=== PATIENT | female | born 1940 | race Caucasian/White ===

== ENCOUNTER 2018-02-10 12:42 | Outpatient (CLI) | payer MEDICARE, OTHER, SELFPAY ==
[2018-02-10 13:09] VITALS: BP 145/72; PULSE 77; RESP 24; TEMP 36.7; O2SAT 91
[2018-02-10 13:10] VITALS: BP 145/72; PULSE 77; RESP 24; TEMP 36.7; O2SAT 91
== END 2018-02-10 13:10 | disposition home or self-care (01) ==
LOC: INF 12:42
PROVIDERS: Family Provider Family Medicine; Visit Provider Family Medicine
DX: M81.0 Age-related osteoporosis without current pathological fracture (principal)
CPT/HCPCS: 96372; J0897

== ENCOUNTER → 2018-02-23 16:30 | Outpatient (CLI) | payer MEDICARE, OTHER, SELFPAY ==
[2018-02-23 16:39] LABS: ABG Base Excess 10.1 mmol/L (-2.4-2.3); ABG HCO3 35.2 mmhg (22.0-26.0); ABG Oxygen Saturation 79 % (90-100); ABG PH 7.38 mmol/L (7.35-7.45)
[2018-02-23 16:41] LABS: Allen's Test ACCEPTABLE; Oxygen ROOM AIR %; Source L. RADIAL
[2018-02-23 16:47] LABS: ABG PCO2 60.4 mmhg (35.0-45.0); ABG PO2 39.9 mmhg (80-100)
== END ==
PROVIDERS: PCP Family Medicine; Visit Provider Family Medicine
DX: R09.02 Hypoxemia (principal)
CPT/HCPCS: 82803

== ENCOUNTER → 2018-02-25 14:50 | Outpatient (CLI) | payer MEDICARE, OTHER, SELFPAY ==
--- NOTE | 2018-02-25 14:58 | XR_ITS ---
XR chest 2V HISTORY: ITS.REASON: HYPOXIA, current smoker ORDERING PHYSICIAN: Manuel Walker MD PATIENT AGE: 77 years COMPARISON: 07/21/2017 FINDINGS: Mild cardiomegaly without failure. There is chronic coarsening of the bronchovascular markings with hyperinflation and hyperattenuation consistent with COPD/smoking related lung disease. There are scattered nodular opacities which may be due to granulomas. No lobar consolidation or collapse. Chronic blunting of the CP angles on both sides. IMPRESSION: Cardiomegaly with COPD/chronic change, no acute finding
[2018-02-25 15:49] LABS: ABG Base Excess 5.5 mmol/L (-2.4-2.3); ABG HCO3 30.7 mmhg (22.0-26.0); ABG Oxygen Saturation 97 % (90-100); ABG PH 7.37 mmol/L (7.35-7.45); ABG PO2 98.2 mmhg (80-100); ABG TCO2 32.4 mmhg (23-27)
[2018-02-25 15:56] LABS: Allen's Test Patient Unable; Oxygen 28% %; Source Left Radial
[2018-02-25 15:57] LABS: ABG PCO2 54.4 mmhg (35.0-45.0)
== END ==
PROVIDERS: PCP Family Medicine; Visit Provider Family Medicine
DX: R09.02 Hypoxemia (principal)
CPT/HCPCS: 71046; 82803

== ENCOUNTER 2018-08-15 12:50 | Outpatient (CLI) | payer MEDICARE, OTHER, SELFPAY ==
[2018-08-15 13:14] VITALS: BP 127/65; PULSE 77; RESP 24; TEMP 36.3; O2SAT 92
== END 2018-08-15 13:14 | disposition home or self-care (01) ==
LOC: INF 12:50
PROVIDERS: Visit Provider Family Medicine
DX: M81.0 Age-related osteoporosis without current pathological fracture (principal)
CPT/HCPCS: 96372; J0897

== ENCOUNTER → 2019-02-14 15:25 | Outpatient (CLI) | payer MEDICARE, OTHER, SELFPAY ==
[2019-02-14 15:03] VITALS: BP 114/73; PULSE 72; RESP 18; TEMP 36.8; O2SAT 93
[2019-02-14 15:17] VITALS: O2SAT 90
--- NOTE | 2019-02-14 15:31 | XR_ITS ---
XR DEXA axial skeleton HISTORY: ITS.REASON: OSTEOPOROSIS ORDERING PHYSICIAN: PAMELA Yip PATIENT AGE: 78 years COMPARISON: 10/07/2015 FINDINGS: The BMD measured at the AP Spine L1-L4 is 0.834 g/cm squared with a T score of -2.9. This is considered Osteoporotic according to the World Health Organization criteria. Fracture risk is High. Lumbar spine density has increased by 3.5%. The mean density of the hips has a T score of -1.2 and is unchanged IMPRESSION: Osteoporosis with high fracture risk. Treatment is advised. Suggest follow-up exam February 2020
--- NOTE | 2019-02-14 15:31 | MM_ITS ---
MM Dig screening mamm BI w/CAD ORDERING PHYSICIAN : PAMELA Yip PATIENT AGE: 78 years GENDER: Female COMPARISON: August 2012, September 2013, 2013, 2014, June 2017, INDICATION: ITS routine screening mammogram. No hormones. No new complaints Family history. Sister and niece with breast cancer. TECHNIQUE: Standard CC and MLO images were obtained. R2 CAD reviewed. FINDINGS: Mild/moderate residual fibroglandular elements in both breasts. As on today's films the fibroglandular elements are slightly more evident but this may merely reflect technique... No history of the exogenous hormones or creamgiven. . No dominant or suspicious mass. No suspicious calcifications. . No new findings of significant concern either breast. . CAD computer review highlights no areas of concern. RIGHT BREAST:Stable mammogram LEFT BREAST: No new areas of significant concern A small benign secretory calcifications retroareolar region on left is stable. IMPRESSION: Stable bilateral mammogram. No new areas significant concern. Bilateral follow-up one year recommended. BI-RADS Category: 1 Negative RECOMMENDED FOLLOW-UP: 1YR 1 YEAR FOLLOW-UP (A letter has been sent to the patient regarding results of the study.)
== END ==
PROVIDERS: PCP Physician Assistant; Visit Provider Physician Assistant
DX: Z12.31 Encounter for screening mammogram for malignant neoplasm of breast (principal); M81.0 Age-related osteoporosis without current pathological fracture
CPT/HCPCS: 77067; 77080; 96372; J0897

== ENCOUNTER 2020-03-24 13:04 | Outpatient (CLI) | payer MEDICARE, OTHER, SELFPAY ==
[2020-03-24 13:20] VITALS: BP 124/66; PULSE 67; RESP 22
== END 2020-03-24 13:20 | disposition home or self-care (01) ==
LOC: INF 13:04
PROVIDERS: Visit Provider Family Medicine
DX: M81.0 Age-related osteoporosis without current pathological fracture (principal)
CPT/HCPCS: 96372; J0897

== ENCOUNTER → 2021-09-22 15:53 | Outpatient (CLI) | payer OTHER, MEDICARE, SELFPAY ==
[2021-09-22 17:19] LABS: Alanine Aminotransferase 29 U/L (12-78); Albumin Level 3.9 g/dl (3.5-5.0); Albumin/Globulin Ratio 1.4 (1.1-1.8); Alkaline Phosphatase 45 U/L (38-126); Anion Gap 8.9 mEq/L (5-15); Aspartate Amino Transferase 29 U/L (14-36); Bilirubin,Total 0.3 mg/dl (0.2-1.3); Blood Urea Nitrogen 16 mg/dl (7-17); Calcium 9.4 mg/dl (8.4-10.2); Carbon Dioxide 33 mmol/L (22.0-30.0); Chloride 100 mmol/L (98-107); Estimated Glomerular Filt Rate 69 ml/min (>60); GFR (African American) 83 ML/MIN (>60); Globulin 2.7 g/dL (1.3-3.2); Glucose 198 mg/dl (74-100); Potassium 3.9 mmoL/L (3.5-5.1); Sodium 138 mmol/L (136-145); Total Protein,Serum 6.6 g/dl (6.3-8.2)
[2021-09-22 18:12] LABS: Vitamin B12 > 1000 pg/mL (239-931)
== END ==
PROVIDERS: Visit Provider Family Medicine
DX: J44.9 Chronic obstructive pulmonary disease, unspecified (principal); J96.12 Chronic respiratory failure with hypercapnia
CPT/HCPCS: 80053; 82607; 84443

== ENCOUNTER 2021-09-27 16:38 | Observation (INO) | payer OTHER, MEDICARE, SELFPAY ==
[2021-09-27] VITALS (10 sets, daily range): BP systolic 151–176; BP diastolic 81–94; PULSE 88–103; RESP 20–38; O2SAT 93–97; BMI 29.2; BMI 24.3
--- NOTE | 2021-09-27 16:46 | XR_ITS ---
PROCEDURE INFORMATION: Exam: XR Chest Exam date and time: 09/27/2021 4:46 PM Age: 81 years old Clinical indication: Dyspnea and shortness of breath; Additional info: Dyspnea, SOB TECHNIQUE: Imaging protocol: XR of the chest. Views: 1 view. COMPARISON: CR CXR2V XR chest 2V 02/25/2018 2:53 PM FINDINGS: Lungs: Patient is rotated right to left. Right perihilar infiltrate is suspected. Pleural spaces: Unremarkable. No pleural effusion. No pneumothorax. Heart/Mediastinum: Unremarkable. No cardiomegaly. Bones/joints: Unremarkable. IMPRESSION: Patient is rotated right to left. Right perihilar infiltrate is suspected.
[2021-09-27 17:26] LABS: Coronavirus 19, PCR Not Detected (NotDetected); Influenza A, PCR Not Detected (NotDetected); Influenza B, PCR Not Detected (NotDetected)
--- NOTE | 2021-09-27 17:32 | PC.NURSE ---
has been paged.
--- NOTE | 2021-09-27 17:41 | PC.NURSE ---
ER MD speaking with PCP about possible admission
--- NOTE | 2021-09-27 17:51 | PC.NURSE ---
Called and left message for pt's nurse to return call.
--- NOTE | 2021-09-27 17:53 | PC.NURSE ---
Hospice nurse returned call.
--- NOTE | 2021-09-27 18:24 | PC.NURSE ---
Dr Hagen speaking with Dr Goodrich
--- NOTE | 2021-09-27 18:31 | PC.NURSE ---
notified house about admission
--- NOTE | 2021-09-27 18:49 | PC.NURSE ---
has been paged.
--- NOTE | 2021-09-27 19:00 | PC.NURSE ---
speaking with Dr Flores, whom is on site construction superintendent for Dr Redmond.
--- NOTE | 2021-09-27 19:16 | PC.NURSE ---
Pt depends changed, minimal urine present.
--- NOTE | 2021-09-27 19:33 | PC.NURSE ---
Hospice nurse Emily Cesar phone number [phone]
--- NOTE | 2021-09-27 21:02 | HMH.EDSOB ---
ED Disposition Clinical Impression: Pneumonia, Dehydration Disposition: Admitted As Inpatient Condition on Discharge: Good Time of Disposition: 20:00 - Critical Care Critical Care Time: Yes Attestation: On 09/27/21, the high probability of a clinically significant, sudden or life threatening deterioration of the following system(s) required my full and direct attention, intervention and personal management. The time I documented below is in addition to time spent performing reported procedures but includes the following listed in this critical care notation. Total Critical Care Time: 30 Vital system(s) involved:: Respiratory Failure My critical care processes included: Assessment & monitoring of V/S, Initial and Re-exams, Data Review/Interpretation, Coordinating Care, Medication Orders and management, Documentation Medical Decision Making - Medical Records Medical records reviewed: Yes: I reviewed the patient's medical records. - Jovan Inquiry Pt receiving controlled substance: No Vital Signs: 09/27/21 16:39 09/27/21 16:42 09/27/21 17:00 Pulse Rate 103 H 101 H Pulse Rate [Right Radial] 102 H Respiratory Rate 20 36 H 38 H Blood Pressure 159/91 H 166/90 H Blood Pressure [Right Arm] 159/91 H Blood Pressure Mean Blood Pressure Mean [Right Arm] 113 Blood Pressure Source [Right Arm] Automatic Cuff Blood Pressure Position [Right Arm] Sitting 02 Sat by Pulse Oximetry 94 L 96 96 Oxygen Delivery Method Nasal Cannula Oxygen Flow Rate (LPM) 3 09/27/21 17:30 09/27/21 18:00 09/27/21 18:31 Pulse Rate 101 H 101 H Pulse Rate [Right Radial] Respiratory Rate 35 H 30 H 29 H Blood Pressure 151/81 H 166/86 H 153/87 H Blood Pressure [Right Arm] Blood Pressure Mean 103 Blood Pressure Mean [Right Arm] Blood Pressure Source [Right Arm] Blood Pressure Position [Right Arm] 02 Sat by Pulse Oximetry 96 97 Oxygen Delivery Method Nasal Cannula Oxygen Flow Rate (LPM) 3 09/27/21 19:00 09/27/21 19:05 09/27/21 19:30 Pulse Rate 97 H 88 97 H Pulse Rate [Right Radial] Respiratory Rate 30 H Blood Pressure 165/81 H 176/93 H Blood Pressure [Right Arm] Blood Pressure Mean 111 120 Blood Pressure Mean [Right Arm] Blood Pressure Source [Right Arm] Blood Pressure Position [Right Arm] 02 Sat by Pulse Oximetry 93 L 94 L Oxygen Delivery Method Oxygen Flow Rate (LPM) 3 3 09/27/21 20:00 Pulse Rate 94 H Pulse Rate [Right Radial] Respiratory Rate 26 H Blood Pressure 172/94 H Blood Pressure [Right Arm] Blood Pressure Mean 127 Blood Pressure Mean [Right Arm] Blood Pressure Source [Right Arm] Blood Pressure Position [Right Arm] 02 Sat by Pulse Oximetry 93 L Oxygen Delivery Method Oxygen Flow Rate (LPM) 3 - Lab Data Lab results reviewed: Yes: I reviewed the patient's lab results. Lab Results 09/27/21 17:17: SARS-CoV-2 (PCR) Not detected, Influenza A Untype (PCR) Not detected, Influenza Type B (PCR) Not detected Orders (Tests/Meds): ED MEDICATIONS Generic Name Dose Route Start Last Admin Trade Name Freq PRN Reason Stop Dose Admin Piperacillin Sod/Tazobactam 50 mls @ 100 mls/hr 09/27/21 17:30 09/27/21 20:01 Sod 3.375 gm/ Sodium Chloride IV 10/11/21 17:29 100 mls/hr Q8H NIKHIL Administration Lactated Ringer's 1,000 mls @ 50 mls/hr 09/27/21 20:00 09/27/21 20:01 Lactated Ringer's 1000 Ml Bag IV 10/27/21 19:59 50 mls/hr .Q20H NIKHIL Administration Sodium Chloride 10 ml 09/27/21 19:58 Sodium Chloride 0.9% 10ml Flush Syringe IV 10/27/21 19:57 NEEDED PRN Maintain IV Site Discontinued Medications Generic Name Dose Route Start Last Admin Trade Name Freq PRN Reason Stop Dose Admin Albuterol/Ipratropium 3 ml 09/27/21 16:46 09/27/21 17:00 Ipratropium/Albuterol 3 Ml Neb IH 09/27/21 16:47 3 ml ONCE ONE Administration Dexamethasone 10 mg 09/27/21 16:46 09/27/21 19:41 Dexamethasone 1mg/1ml Intensol 10ml [facility]
--- NOTE | 2021-09-27 23:35 | PC.NURSE ---
patient up to floor via stretcher @ this time.
[2021-09-28] VITALS: BP 162/76; PULSE 89; RESP 18; TEMP 37.2; O2SAT 93
[2021-09-28 00:16] VITALS: BP 172/94; PULSE 93; RESP 18; TEMP 36.8; O2SAT 93
[2021-09-28 04:00] VITALS: BP 160/98; PULSE 92; RESP 24; TEMP 38.1; O2SAT 90
[2021-09-28 05:01] VITALS: BMI 24.3
--- NOTE | 2021-09-28 07:19 | HMH.PHAVTE ---
[facility] Pharmacy VTE Monitoring - Patient Demographics Admission date: 09/27/21 Report Date: 09/28/21 Time: 07:19 Allergies/Adverse Reactions: Patient Allergies acyclovir [From ZOVIRAX] Allergy (Intermediate, Verified 08/15/18 12:57) I-HIVES azithromycin [From ZITHROMAX] Allergy (Intermediate, Verified 08/15/18 12:57) I-HIVES cefuroxime [From CEFTIN] Allergy (Intermediate, Verified 08/15/18 12:57) I-HIVES clindamycin [CLINDAMYCIN] Allergy (Intermediate, Verified 08/15/18 12:57) I-HIVES oxacillin [From PROSTAPHLIN] Allergy (Intermediate, Verified 08/15/18 12:57) I-HIVES Sulfa (Sulfonamide Antibiotics) [SULFA (SULFONAMIDE ANTIBIOTICS)] Allergy (Intermediate, Verified 08/15/18 12:57) I-HIVES Tetracyclines [TETRACYCLINES] Allergy (Intermediate, Verified 08/15/18 12:57) I-HIVES bupropion [From WELLBUTRIN] Allergy (Unknown, Verified 08/15/18 12:57) Height: 1.63 m Weight: 64.637 kg Patient Problems: Current Active Problems Pneumonia (Acute) Dehydration (Acute) - Prophylaxis VTE Prophylaxis Ordered?: Yes Types of VTE Prophylaxis: TEDS Knee High Location of Applied Device: Bilateral Lower Extremeties
[2021-09-28 08:00] VITALS: BP 169/98; PULSE 96; RESP 21; TEMP 37.1; O2SAT 93
[2021-09-28 08:37] LABS: Basophils % 0.1 % (0.1-2.0); Eosinophils % 0.1 % (0.1-12.0); Hematocrit 41.5 % (37.0-47.0); Hemoglobin 13.8 g/dL (12.2-16.2); Lymphocytes # 1.1 K/mm3 (0.7-4.5); Lymphocytes % 9.4 % (10-50); Mean Corpuscular HGB Conc 33.2 g/dL (31.8-35.4); Mean Corpuscular Volume 96.1 fl (81-99); Mean Platelet Volume 7.6 fl (7.4-10.4); Monocytes # 0.7 K/mm3 (0.1-1.0); Monocytes % 5.9 % (1.7-9.3); Neutrophils # 9.4 K/mm3 (1.8-7.8); Neutrophils % 84.5 % (37.0-80.0); Platelet Count 202 K/mm3 (142-424); Red Blood Count 4.32 M/mm3 (4.20-5.40); Red Cell Distribution Width 11.8 % (11.5-17.5); White Blood Count 11.2 K/mm3 (4.8-10.8)
[2021-09-28 08:51] LABS: Chloride 102 mmol/L (98-107); Potassium 3.4 mmoL/L (3.5-5.1); Sodium 143 mmol/L (136-145)
[2021-09-28 08:54] LABS: Alanine Aminotransferase 62 U/L (12-78); Albumin/Globulin Ratio 1.3 (1.1-1.8); Alkaline Phosphatase 57 U/L (38-126); Anion Gap 9.4 mEq/L (5-15); Aspartate Amino Transferase 50 U/L (14-36); Bilirubin,Total 0.5 mg/dl (0.2-1.3); Blood Urea Nitrogen 26 mg/dl (7-17); Calcium 8.7 mg/dl (8.4-10.2); Carbon Dioxide 35 mmol/L (22.0-30.0); Creatinine Clearance Estimated 44 mL/min (50-200); Estimated Glomerular Filt Rate 69 ml/min (>60); GFR (African American) 83 ML/MIN (>60); Globulin 3.2 g/dL (1.3-3.2); Glucose 146 mg/dl (74-100); Total Protein,Serum 7.2 g/dl (6.3-8.2)
--- NOTE | 2021-09-28 09:11 | HMH.HP ---
*Admission Date: 09/27/21 *Chief complaint: Shortness of breath *History of present illness: Ms. Martínez is an 81-year-old female patient with a history of hypertension, anxiety, hypoglycemia, dementia, O2 dependent COPD, and chronic hypercapnic respiratory failure who presented to [facility] for evaluation due to respiratory distress. She has been attended by HOSPICE at home. Daughter was present and gave most of the history. She stated her Mother had not been eating well for the previous 4 to 5 days. She had some dizziness and basically had not been getting out of bed. Chest x-ray noted a possible right perihilar infiltrate. Laboratory data showed a slightly elevated white blood cell count of 11,200 with a hemoglobin of 13.8 hematocrit 41.5. Blood chemistries showed a sodium of 143 and potassium of 3.4. BUN was 26 and creatinine 0.8. With Evaluation in the emergency room she was felt to have a pneumonia and was started on IVF and Pipercillin, and given a DuoNeb treatment and steroids. Per ER note: Mrs. Martínez is an 81-year-old female with multiple comorbidities and advanced dementia currently on hospice who presents to the emergency department due to increased work of breathing and altered mental status. Family reports that patient has had a worsening cough and increased congestion over the last week. Today patient became altered and more confused. Patient currently lives at home with her who alerted EMS. On scene patient was satting 80% on room air placed on 3 L nasal cannula. Per family patient uses 3 L nasal cannula intermittently prior to illness. Patient has had no fevers, bowel changes, urinary symptoms, rashes per family. Of note patient is currently on hospice due to failure to thrive and progression of her dementia. Patient lives at home with her elderly spouse who is finding it difficult to take care of her in her current state. During this initial exam patient stated she was not short of breath. She was unable to answer most of questions for review of systems. She continued with a productive cough throughout the assessment. [facility] History Medical History: Reports:: Asthma, Chronic Obstructive Pulmonary Disease (COPD), Diabetes Mellitus Type 2, Hyperlipidemia, Hypertension Denies:: Cancer, Diabetes Mellitus Type 1, Internal Pacemaker, MRSA, Seizures *Have you ever received a pneumonia vaccine?: Yes *Have you received a flu vaccine this season?: Yes Other Medical History: Reports: Arthritis, Thyroid Disease Laterality Cases: Bilateral: Other Other Surgeries: Yes: Colostomy, Hernia Repair, Hysterectomy-Total, Thyroidectomy. No: Pacemaker Amputation: No Fractures: No - *Social History Smoking Status: Former smoker (quit 1 yr ago) Tobacco Type: cigarettes # Packs/Day (cigarettes): 1 Alcohol Intake: never Alcohol Intake Frequency:: other Substance Use Type: denies use *Occupational Status:: disabled Housing: house Household Members: spouse *Travel in the last 8 weeks: None Family Hx:: Cancer, Hyperlipidemia, Hypertension Comment: Mother at the age of 72 and had COPD Review of Systems - Review of Systems Obtained mostly from the daughter. - Constitutional Reports fever(s), Reports lack of energy - Eyes Denies change in vision - ENT Reports dizziness - *Cardiovascular Reports shortness of breath, Denies chest pain - *Respiratory Reports chest congestion, Reports cough, Reports shortness of breath, Reports excessive phlegm production - *Gastrointestinal Reports nausea, Reports vomiting, Denies abdominal pain, Denies loose stools - *Genitourinary Denies difficulty urinating - *Musculoskeletal Reports abnormal walking (was too weak to walk), Reports muscle weakness - *Neurologic Reports confusion (Decrease in response), Reports memory loss, Reports weakness Meds Home Medications Medication Instructions Recorded Confirmed Type Amlodipine Besylate [Norvasc 5mg
--- NOTE | 2021-09-28 09:39 | SW/DCPLANNER ---
Addendum entered by Eva Brito 09/28/21 15:17: A.Michael w/ Hospice has been here today to evaluate this patient with Hospice MD: appropriate discharge plan [facility] [place] was discussed and family is agreeable. I have updated [facility] regarding discharge plan to the Care Center. I have also updated Dr Redmond of discharge plan for this patient to transfer [facility]. Addendum entered by Eva Brito 09/28/21 12:43: Diane w/ [facility] has stated they do not have female [facility] pending beds available. Information has been faxed to [facility]. Addendum entered by Eva Brito 09/28/21 11:31: Bennett (Band Saw Marker) w/ Hospice and myself spoke with family this AM regarding discharge plans. After a lengthy discussion of discharge options the decision was made to begin searching for placement under [facility] pending. Family is interested in [facility], [place], [facility] and [place] facilities. I will begin this process and keep family (Yuliana- daughter [phone]), Dr Redmond and Hospice updated. Original Note: This patient currently resides at home with spouse/family under [facility] Care. I did speak w/ Brianna from Hospice and she has stated that this stay is related and will be covered by Hospice. During rounds this AM family expressed concern in patient not being able to return due to spouse being in poor health conditions as well. I did have a lengthy conversation with family regarding: home with Hospice, [facility] vs placement. The [facility] will be here this AM to speak with patient regarding discharge plans: I will evaluate with Hospice once they arrive.
[2021-09-28 09:55] VITALS: BMI 242163.9
[2021-09-28 12:58] VITALS: PULSE 128; PULSE 133
--- NOTE | 2021-09-28 13:40 | DIET.NUTRFU ---
RD upon able to speak to patient, sleeping. Spoke to family who reported concerns of aspiration not being able to eat. Confirmed that concern with nursing, she aspirated on some pills. Not appropriate at this time to educate or add supplements. industrial production manager spoke to family today regarding home with Hospice, [facility] vs placement. Will wait for further update on oral diet before adding interventions.
--- NOTE | 2021-09-28 14:30 | PC.NURSE ---
RESPIRATORY CARE: SPUTUM COLLECTION ATTEMPTED WITH THIS PT. AT THIS TIME SHE IS NOT CAPABLE OF PRODUCING THIS SPECIMEN. WILL REASSESS.
--- NOTE | 2021-09-28 15:06 | HMH.PHAINT ---
MEDICATION RECONCILIATION COMPLETED ON PATIENT USING EXTERNAL FILL HISTORY FROM PHARMACY, LIST FROM [facility] OFFICE, AND [facility]IDA REPORT. -AMY PRADOD
[2021-09-28 16:00] VITALS: BP 151/93; PULSE 124; RESP 24; TEMP 37.2; O2SAT 94
--- NOTE | 2021-09-28 18:59 | PC.NURSE ---
report called to antione at [facility]
[2021-09-28 21:21] LABS: POC Glucose,Bedside 133 (70-110)
--- NOTE | 2021-10-02 22:43 | HMH.DCSUM ---
General - General Admission date:: 09/28/21 Discharge date: 09/28/21 HPI HPI: Ms. Martínez is an 81-year-old female patient with a history of hypertension, anxiety, hypoglycemia, dementia, O2 dependent COPD, and chronic hypercapnic respiratory failure who presented to [facility] for evaluation due to respiratory distress. She has been attended by HOSPICE at home. Daughter was present and gave most of the history. She stated her Mother had not been eating well for the previous 4 to 5 days. She had some dizziness and basically had not been getting out of bed. Chest x-ray noted a possible right perihilar infiltrate. Laboratory data showed a slightly elevated white blood cell count of 11,200 with a hemoglobin of 13.8 hematocrit 41.5. Blood chemistries showed a sodium of 143 and potassium of 3.4. BUN was 26 and creatinine 0.8. With Evaluation in the emergency room she was felt to have a pneumonia and was started on IVF and Pipercillin, and given a DuoNeb treatment and steroids. Per ER note: Mrs. Martínez is an 81-year-old female with multiple comorbidities and advanced dementia currently on hospice who presents to the emergency department due to increased work of breathing and altered mental status. Family reports that patient has had a worsening cough and increased congestion over the last week. Today patient became altered and more confused. Patient currently lives at home with her who alerted EMS. On scene patient was satting 80% on room air placed on 3 L nasal cannula. Per family patient uses 3 L nasal cannula intermittently prior to illness. Patient has had no fevers, bowel changes, urinary symptoms, rashes per family. Of note patient is currently on hospice due to failure to thrive and progression of her dementia. Patient lives at home with her elderly spouse who is finding it difficult to take care of her in her current state. During this initial exam patient stated she was not short of breath. She was unable to answer most of questions for review of systems. She continued with a productive cough throughout the assessment. Hospital Course Hospital Course: The patient was started on scheduled duo nebs, piperacillin, and some of home medicines. She remained on IV fluids with potassium at 75 an hour. She was placed on sliding scale insulin before meals and at bedtime. Dr. Redmond discussed the patient's situation with her son and daughter. Hospice came to consider the patient for transfer and accepted her. They will give an additional 24 hrs of antibiotic treatment. She was transferred. Objective Vital signs: Temp Pulse Resp BP Pulse Ox 99 F 124 H 24 151/93 H 94 L 09/28/21 16:00 09/28/21 16:00 09/28/21 16:00 09/28/21 16:00 09/28/21 16:00 Narrative: - Constitutional mild distress Comments: Will open eyes and say yes and no briefly. Periodic productive cough. Tries to remove phlegm from her mouth. - *Routine HEENT Exam Head: Present: normocephalic, atraumatic Eye: Present: PERRL. Absent: conjunctival icterus, scleral injection ENT: Present: mucous membranes moist. Absent: oropharynx clear (Phlegm noted in mouth) - *Routine Neck Exam Absent: carotid bruit (Unable to hear due to respiratory sounds), lymphadenopathy, thyromegaly - *Routine Respiratory Exam Present: CTA bilaterally, crackles (Scattered throughout posteriorly), diminished air movement (Posteriorly) - *Routine Cardiovascular Exam Present: RRR - *Routine Abdominal Exam Present: soft, normoactive bowel sounds. Absent: tenderness - *Routine Rectal Exam Rectal:: deferred - *Routine Genitalia Exam Genitalia:: deferred - *Routine Extremities Exam Present: KAYLA stockings. Absent: edema, calf tenderness - *Routine Neurological Exam Present: altered mental status, moving all extremities. Absent: alert Decrease in response. Will awaken briefly and answer yes and no questions. DS: Diagnosis
== END 2021-09-28 18:57 | disposition hospice, inpatient (51) ==
LOC: ER 16:48 → 2ND 19:11
PROVIDERS: Admitting Provider Family Medicine; Emergency Provider Student in an Organized Health Care Education/Training Program; PCP Family Medicine; Visit Provider Family Medicine
DX: J96.21 Acute and chronic respiratory failure with hypoxia (principal); J44.9 Chronic obstructive pulmonary disease, unspecified; E11.9 Type 2 diabetes mellitus without complications; F17.210 Nicotine dependence, cigarettes, uncomplicated; J18.9 Pneumonia, unspecified organism; E86.0 Dehydration; Z51.5 Encounter for palliative care; Z88.3 Allergy status to other anti-infective agents; Z88.2 Allergy status to sulfonamides; Z88.8 Allergy status to other drugs, medicaments and biological substances; Z99.81 Dependence on supplemental oxygen; Z79.84 Long term (current) use of oral hypoglycemic drugs; Z20.822 Contact with and (suspected) exposure to COVID-19
CPT/HCPCS: 36415; 71045; 80053; 82962; 85025; 94640; 96365; 96375; 99284; C9803; G0378; J2543; U0003; U0005